=== PATIENT | male | born 1960 | race Caucasian/White ===

== ENCOUNTER 2019-10-04 11:13 | Inpatient (IN) | payer MEDICARE, SELFPAY ==
[2019-10-04] VITALS (18 sets, daily range): BP systolic 141–196; BP diastolic 67–92; PULSE 75–120; RESP 12–29; TEMP 36.1–36.6; O2SAT 95–100; BMI 22.8
--- NOTE | 2019-10-04 11:30 | DI.RAD.S_ITS ---
PROCEDURE: XR CHEST 1V INDICATIONS: sepsis TECHNIQUE: One view of the chest was acquired. COMPARISON: None. FINDINGS: Surgical changes and devices: None. Lungs and pleura: Lungs are clear, yet hyperexpanded. No pleural effusions or pneumothorax. Mediastinum: Mediastinal contours appear normal. Heart size is normal. Bones and chest wall: Age-appropriate bony degenerative changes are seen. No suspicious bony lesions. Overlying soft tissues appear unremarkable. IMPRESSION: No focal infiltrates are seen on this portable chest radiograph. The lungs are hyperexpanded. Dictated by: Lei Ellis M.D. on 10/04/2019 at 11:02 Approved by: Lei Ellis M.D. on 10/04/2019 at 11:03
--- NOTE | 2019-10-04 11:34 | ED_ITS ---
HPI - Extremity Injury (Lower) <CLAUDIA Leger - Last Filed: 10/04/19 20:39> General Chief Complaint: Extremity Problem,Nontraumatic Stated Complaint: 'bad problems with my feet' Time Seen by Provider: 10/04/19 11:14 History of Present Illness HPI Narrative: 59yo disheveled appearing male with poor hygiene presents to the emergency department for bilateral foot pain, swelling, and wounds. Patient states approximately 5 years ago he had similar swelling and pain, he was seen by a vascular specialist who recommended surgery. He declines surgery as they stated he was unable is a splint but recommended using a vein from his arm. He has not seen a doctor since this. However, over the past week he noticed increasing pain and swelling. Patient states he noticed maggots in the wound of his R fifth toe over the past few days, he tried to clean amount. Patient states the pain in his feet is worse when his feet are elevated and when he is walking. He denies any history of diabetes or any chronic medical conditions. Patient states he lives in [place], he denies long walks, recent cold exposure, or consistently wet feet. Patient denies having a primary care provider. Patient states he smokes about a pack of cigarettes a day and occasional marijuana, denies other drugs. Related Data Home Medications Medication Instructions Recorded Confirmed ibuprofen [Advil] 600 mg PO QD-BID PRN 10/04/19 10/04/19 naproxen sodium [Aleve] 220 mg PO Q12H 10/04/19 10/04/19 Allergies Allergy/AdvReac Type Severity Reaction Status Date / Time No Known Drug Allergies Allergy Verified 10/04/19 12:16 Review of Systems <CLAUDIA Leger - Last Filed: 10/04/19 20:39> Review of Systems Narrative: REVIEW OF SYSTEMS: GENERAL: Denies fever or chills. HENT: No head trauma. EYES: No double vision or vision loss. CARDIOVASCULAR: No chest pain or syncope. RESPIRATORY: No shortness of breath or cough. GASTROINTESTINAL: No nausea, vomiting, diarrhea, or constipation. GENITOURINARY: No flank pain. MUSCULOSKELETAL: Complains of bilateral foot pain, see HPI. INTEGUMENTARY: No rash, lesions, or pruritus. NEURO: No numbness, tingling. PSYCH: No behavior or mood changes. Patient History <CLAUDIA Leger - Last Filed: 10/04/19 20:39> Medical History Hyperlipidemia (Acute) Peripheral vascular disease (Acute) Smoker (Acute) Tobacco dependence (Acute) Surgical History History of appendectomy (Acute) History of carpal tunnel surgery of right wrist (Acute) Family History Mother Alcoholism Father Alcoholism Social History household members: none Smoking Status: Current every day smoker Smoking Status: Current every day smoker Exam <CLAUDIA Leger - Last Filed: 10/04/19 20:39> Initial Vital Signs Initial Vital Signs: Vital Signs Temperature 97.9 F 10/04/19 11:38 Pulse Rate 120 H 10/04/19 11:38 Respiratory Rate 12 10/04/19 11:38 Blood Pressure 141/87 H 10/04/19 11:38 Pulse Oximetry 97 10/04/19 11:38 PHYSICAL EXAMINATION: GENERAL: Disheveled, poor hygiene. Answers questions promptly and appropriately. Vital signs noted. HENT: Normocephalic, atraumatic. EYES: Symmetrical, sclera white, no periorbital swelling. CARDIOVASCULAR: S1 and S2 sounds normal. Tachycardia, regular rhythm. RESPIRATORY: Normal respiratory rate, trachea midline, airway patent. No stridor, nasal flaring or accessory muscle use. Lungs are clear in all [place]. Occasional cough noted. MUSCULOSKELETAL: Black gangrenous tissue noted to the distal aspect of his right 5th toe, skin sloughing noted-clear serosanguineous, no maggots observed. Erythema, swelling, tenderness noted to left 3-5th toes extending up to the metatarsals, small amount of purulent drainage noted in between the toes, small amount of black sloughing noted, tip of 4th toe with an ulceration noted. No maggots. No fluctuation. Normal gait and coordination. Equal tone and mass bilaterally. No spinal tenderness or deformities. Patient able to move feet and toes. EXTREMITIES: CMS intact. 1+ nonpitting pedal edema, pedal pulses 2+ and equal bilaterally. SKIN: Warm, dry, soft, appropriate color for ethnicity. No lesions, rashes, or wounds. NEURO: Alert and Oriented X 3. No sensory deficits. PSYCH: Appropriate affect and mood. <Jayden Long MD - Last Filed: 10/29/19 07:11> Initial Vital Signs Initial Vital Signs: Vital Signs Temperature 97.9 F 10/04/19 11:38 Pulse Rate 120 H 10/04/19 11:38 Respiratory Rate 12 10/04/19 11:38 Blood Pressure 141/87 H 10/04/19 11:38 Pulse Oximetry 97 10/04/19 11:38 Course <CLAUDIA Leger - Last Filed: 10/04/19 20:39> Course Course Narrative: 1143: Dr Long at bedside to examine patient is well. 1200: Septic fluids started 1330: Dr. Long spoke with Dr. Quinones, orthopedic who stated he will consult with the patient this evening. 1350: I spoke with Dr. Chen who accepts for admission to inpatient. Requesting CRP and sed rate. Orders Ordered: Discontinued Medications Acetaminophen (Tylenol) 650 mg PO Q6HR PRN PRN Reason: Fever/Mild Pain (1-3) Hydrocodone Bitart/Acetaminophen ([place] 5/325) 1 tab PO Q4HR PRN PRN Reason: Pain, Moderate (4-6) Last Admin: 10/04/19 17:10 Dose: 1 tab Documented by: DEAN Al Hydrox/Mg Hydrox/Simethicone (Maalox Plus) 30 ml PO Q6HR PRN PRN Reason: Dyspepsia Aspirin (Aspirin Ec) 81 mg PO DAILY [facility] Last Admin: 10/05/19 08:39 Dose: Not Given Documented by: ANA Atorvastatin Calcium (Lipitor) 40 mg PO BEDTIME [facility] Last Admin: 10/04/19 20:20 Dose: 40 mg Documented by: DEAN Calcium Carbonate (Tums) 1,000 mg PO Q4HR PRN PRN Reason: Dyspepsia Docusate Sodium (Colace) 100 mg PO BID [facility] Last Admin: 10/05/19 08:39 Dose: Not Given Documented by: Admin: 10/04/19 20:20 Dose: 100 mg Documented by: DEAN Enoxaparin Sodium (Lovenox) 40 mg SUBCUT DAILY [facility] Last Admin: 10/05/19 08:37 Dose: 40 mg Documented by: ANA Sodium Chloride (Normal Saline 0.9%) 2,041.17 mls @ 680.39 mls/hr 30 ml/kg infuse over 3 hr (2041.17 ml) IV NOW ONE Stop: 10/04/19 14:46 Last Infusion: 10/04/19 14:36 Dose: 0 mls/hr Documented by: Admin: 10/04/19 12:02 Dose: 680.39 mls/hr Documented by: UMM Vancomycin HCl/Dextrose (Vancomycin) 1,500 mg in 300 mls @ 200 mls/hr IV NOW O NE Stop: 10/04/19 13:58 Last Infusion: 10/04/19 15:53 Dose: 0 mls/hr Documented by: Admin: 10/04/19 12:49 Dose: 200 mls/hr Documented by: UMM Sodium Chloride (Normal Saline 0.9%) 1,000 mls @ 100 mls/hr IV CONT [facility] Last Admin: 10/05/19 03:25 Dose: 100 mls/hr Documented by: MARIA L Infusion: 10/05/19 02:47 Dose: 100 mls/hr Documented by: MARIA L Admin: 10/04/19 16:47 Dose: 100 mls/hr Documented by: DEAN Ceftriaxone Sodium/Dextrose (Rocephin) 2 gm in 50 mls @ 100 mls/hr IV Q24H [facility] Last Infusion: 10/04/19 20:13 Dose: 0 mls/hr Documented by: Admin: 10/04/19 18:20 Dose: 100 mls/hr Documented by: DEAN Vancomycin HCl (Vancomycin) 1,000 mg in 200 mls @ 200 mls/hr IV Q12H [facility] Last Infusion: 10/05/19 02:30 Dose: 0 mls/hr Documented by: MARIA L Admin: 10/05/19 01:28 Dose: 200 mls/hr Documented by: MARIA L Ketorolac Tromethamine (Toradol) 30 mg IV NOW ONE Stop: 10/04/19 14:23 Last Admin: 10/04/19 14:36 Dose: 30 mg Documented by: UMM Morphine Sulfate (Morphine) 1 mg IV Q2HR PRN PRN Reason: Pain, Mild (1-3) Morphine Sulfate (Morphine) 2 mg IV Q2HR PRN PRN Reason: Pain, Moderate (4-6) Last Admin: 10/05/19 11:01 Dose: 2 mg Documented by: Admin: 10/05/19 08:43 Dose: 2 mg Documented by: Admin: 10/04/19 20:20 Dose: 2 mg Documented by: DEAN Morphine Sulfate (Morphine) 3 mg IV Q2HR PRN PRN Reason: Pain, Severe (7-10) Last Admin: 10/05/19 05:33 Dose: 3 mg Documented by: MARIA L Admin: 10/05/19 03:24 Dose: 3 mg Documented by: MARIA L Admin: 10/05/19 01:25 Dose: 3 mg Documented by: MARIA L Admin: 10/04/19 22:50 Dose: 3 mg Documented by: DEAN Naloxone HCl (Narcan) 0.2 mg IV Q2MIN PRN PRN Reason: Opiate Reversal Ondansetron HCl (Zofran) 4 mg IV Q8HR PRN PRN Reason: Nausea And Vomiting Oxycodone HCl (Percolone) 5 mg PO Q4HR PRN PRN Reason: Pain, Moderate (4-6) Oxycodone HCl (Percolone) 10 mg PO Q4HR PRN PRN Reason: Pain, Severe (7-10) Last Admin: 10/04/19 18:17 Dose: 10 mg Documented by: DEAN Promethazine HCl (Phenadoz) 12.5 mg UT Q6HR PRN PRN Reason: Nausea And Vomiting Sodium Chloride (Normal Saline 0.9% Flush) 10 ml IV PRN PRN PRN Reason: Flush Sodium Chloride (Normal Saline 0.9% Flush) 10 ml IV BID [facility] Last Admin: 10/05/19 08:37 Dose: 10 ml Documented by: ANA Vancomycin HCl (Vancomycin Per Pharmacy) 1 request ANNA NOW ONE Stop: 10/04/19 18:11 Last Admin: 10/04/19 20:21 Dose: Not Given Documented by: DEAN Vancomycin HCl (Vancomycin Trough) 1 request [facility]30 [facility] Stop: 10/06/19 00:31 Vital Signs Vital signs: Vital Signs - 8 hr 10/04/19 13:00 10/04/19 13:30 10/04/19 14:00 Pulse Rate 97 H 90 95 H Respiratory Rate 29 H 24 23 Pulse Oximetry 98 98 98 <Jayden Long MD - Last Filed: 10/29/19 07:11> Orders Ordered: Discontinued Medications Acetaminophen (Tylenol) 650 mg PO Q6HR PRN PRN Reason: Fever/Mild Pain (1-3) Hydrocodone Bitart/Acetaminophen ([place] 5/325) 1 tab PO Q4HR PRN PRN Reason: Pain, Moderate (4-6) Last Admin: 10/04/19 17:10 Dose: 1 tab Documented by: DEAN Contreras Hydrox/Mg Hydrox/Simethicone (Maalox Plus) 30 ml PO Q6HR PRN PRN Reason: Dyspepsia Aspirin (Aspirin Ec) 81 mg PO DAILY [facility] Last Admin: 10/05/19 08:39 Dose: Not Given Documented by: ANA Atorvastatin Calcium (Lipitor) 40 mg PO BEDTIME [facility] Last Admin: 10/04/19 20:20 Dose: 40 mg Documented by: DEAN Calcium Carbonate (Tums) 1,000 mg PO Q4HR PRN PRN Reason: Dyspepsia Docusate Sodium (Colace) 100 mg PO BID [facility] Last Admin: 10/05/19 08:39 Dose: Not Given Documented by: Admin: 10/04/19 20:20 Dose: 100 mg Documented by: DEAN Enoxaparin Sodium (Lovenox) 40 mg SUBCUT DAILY [facility] Last Admin: 10/05/19 08:37 Dose: 40 mg Documented by: ANA Sodium Chloride (Normal Saline 0.9%) 2,041.17 mls @ 680.39 mls/hr 30 ml/kg infuse over 3 hr (2041.17 ml) IV NOW ONE Stop: 10/04/19 14:46 Last Infusion: 10/04/19 14:36 Dose: 0 mls/hr Documented by: Admin: 10/04/19 12:02 Dose: 680.39 mls/hr Documented by: UMM Vancomycin HCl/Dextrose (Vancomycin) 1,500 mg in 300 mls @ 200 mls/hr IV NOW ONE Stop: 10/04/19 13:58 Last Infusion: 10/04/19 15:53 Dose: 0 mls/hr Documented by: Admin: 10/04/19 12:49 Dose: 200 mls/hr Documented by: UMM Sodium Chloride (Normal Saline 0.9%) 1,000 mls @ 100 mls/hr IV CONT [facility] Last Admin: 10/05/19 03:25 Dose: 100 mls/hr Documented by: MARIA L Infusion: 10/05/19 02:47 Dose: 100 mls/hr Documented by: MARIA L Admin: 10/04/19 16:47 Dose: 100 mls/hr Documented by: DEAN Ceftriaxone Sodium/Dextrose (Rocephin) 2 gm in 50 mls @ 100 mls/hr IV Q24H [facility] Last Infusion: 10/04/19 20:13 Dose: 0 mls/hr Documented by: Admin: 10/04/19 18:20 Dose: 100 mls/hr Documented by: DEAN Vancomycin HCl (Vancomycin) 1,000 mg in 200 mls @ 200 mls/hr IV Q12H [facility] Last Infusion: 10/05/19 02:30 Dose: 0 mls/hr Documented by: MARIA L Admin: 10/05/19 01:28 Dose: 200 mls/hr Documented by: MARIA L Ketorolac Tromethamine (Toradol) 30 mg IV NOW ONE Stop: 10/04/19 14:23 Last Admin: 10/04/19 14:36 Dose: 30 mg Documented by: UMM Morphine Sulfate (Morphine) 1 mg IV Q2HR PRN PRN Reason: Pain, Mild (1-3) Morphine Sulfate (Morphine) 2 mg IV Q2HR PRN PRN Reason: Pain, Moderate (4-6) Last Admin: 10/05/19 11:01 Dose: 2 mg Documented by: Admin: 10/05/19 08:43 Dose: 2 mg Documented by: Admin: 10/04/19 20:20 Dose: 2 mg Documented by: DEAN Morphine Sulfate (Morphine) 3 mg IV Q2HR PRN PRN Reason: Pain, Severe (7-10) Last Admin: 10/05/19 05:33 Dose: 3 mg Documented by: MARIA L Admin: 10/05/19 03:24 Dose: 3 mg Documented by: MARIA L Admin: 10/05/19 01:25 Dose: 3 mg Documented by: MARIA L Admin: 10/04/19 22:50 Dose: 3 mg Documented by: DEAN Naloxone HCl (Narcan) 0.2 mg IV Q2MIN PRN PRN Reason: Opiate Reversal Ondansetron HCl (Zofran) 4 mg IV Q8HR PRN PRN Reason: Nausea And Vomiting Oxycodone HCl (Percolone) 5 mg PO Q4HR PRN PRN Reason: Pain, Moderate (4-6) Oxycodone HCl (Percolone) 10 mg PO Q4HR PRN PRN Reason: Pain, Severe (7-10) Last Admin: 10/04/19 18:17 Dose: 10 mg Documented by: DEAN Promethazine HCl (Phenadoz) 12.5 mg UT Q6HR PRN PRN Reason: Nausea And Vomiting Sodium Chloride (Normal Saline 0.9% Flush) 10 ml IV PRN PRN PRN Reason: Flush Sodium Chloride (Normal Saline 0.9% Flush) 10 ml IV BID [facility] Last Admin: 10/05/19 08:37 Dose: 10 ml Documented by: ANA Vancomycin HCl (Vancomycin Per Pharmacy) 1 request [facility] NOW ONE Stop: 10/04/19 18:11 Last Admin: 10/04/19 20:21 Dose: Not Given Documented by: DEAN Vancomycin HCl (Vancomycin Trough) 1 request [facility]30 [facility] Stop: 10/06/19 00:31 Vital Signs Vital signs: Vital Signs - 8 hr 10/04/19 13:00 10/04/19 13:30 10/04/19 14:00 Pulse Rate 97 H 90 95 H Respiratory Rate 29 H 24 23 Pulse Oximetry 98 98 98 MDM - Extremity Injury (Lower) <CLAUDIA Leger - Last Filed: 10/04/19 20:39> Medical Records Attestation: I reviewed the patient's medical records. Lab Data Attestation: I reviewed the patient's lab results. Result diagrams: 10/05/19 04:55 10/05/19 04:55 Labs: Lab Results 10/04/19 10/04/19 10/04/19 Range/Units 11:32 11:32 11:32 WBC 14.0 H (4.5-11.0) X10^3/uL RBC 4.71 (4.5-5.9) X10^6/uL Hgb 15.4 (13.5-17.5) g/dL Hct 45.1 (41-53) % MCV 95.8 (80-100) fL MCH 32.6 (26-34) PG MCHC 34.0 (30-36) % RDW 13.8 (11.6-14.8) % Plt Count 349 (150-400) X10^3/uL Neut % (Auto) 79.0 H (50-75) % Lymph % (Auto) 13.3 L (25-40) % [place] % (Auto) 6.2 (3-14) % Eos % (Auto) 0.8 L (2-4) % Baso % (Auto) 0.7 (0-2) % Neut # (Auto) 98827 H (8053-8813) /uL Lymph # (Auto) 1900 (8219-3578) /uL [place] # (Auto) 900 (0-900) /uL Eos # (Auto) 100 (0-450) /uL Baso # (Auto) 100 (0-100) /uL ESR (0-15) MM/HR Sodium 132 L (137-145) mmol/L Potassium 3.9 (3.4-5.1) mmol/L Chloride 99 (98-107) mmol/L Carbon Dioxide 24 (22-32) mmol/L BUN 16 (9-20) mg/dL Creatinine 0.66 (0.66-1.25) mg/dL Estimated GFR > 60.0 (>60) mL/min BUN/Creatinine Ratio 24.2 H (6-22) Glucose 129 H (80-110) mg/dL Hemoglobin A1c (4.0-6.0) % Lactate (0.7-2.1) mmol/L Calcium 9.1 (8.4-10.2) mg/dL Total Bilirubin 1.1 (0.2-1.3) mg/dL AST 25 (17-59) IU/L ALT 11 (<50) IU/L Alkaline Phosphatase 75 (38-126) U/L C-Reactive Protein (<1.0) mg/dL Total Protein 7.5 (6.3-8.2) g/dL Albumin 4.3 (3.5-5.0) g/dL Globulin 3.2 (1.7-4.1) g/dL Albumin/Globulin Ratio 1.3 (1.0-2.8) Triglycerides (35-150) mg/dL Cholesterol (140-199) mg/dL LDL Cholesterol, Calc (<100) mg/dL HDL Cholesterol (40-60) mg/dL Procalcitonin < 0.05 (<0.5) ng/mL COVID-19 PCR (Negative) 10/04/19 10/04/19 10/04/19 Range/Units 11:32 11:32 11:32 WBC (4.5-11.0) X10^3/uL RBC (4.5-5.9) X10^6/uL Hgb (13.5-17.5) g/dL Hct (41-53) % MCV (80-100) fL MCH (26-34) PG MCHC (30-36) % RDW (11.6-14.8) % Plt Count (150-400) X10^3/uL Neut % (Auto) (50-75) % Lymph % (Auto) (25-40) % [place] % (Auto) (3-14) % Eos % (Auto) (2-4) % Baso % (Auto) (0-2) % Neut # (Auto) (6581-5620) /uL Lymph # (Auto) (5973-2569) /uL [place] # (Auto) (0-900) /uL Eos # (Auto) (0-450) /uL Baso # (Auto) (0-100) /uL ESR 19 H (0-15) MM/HR Sodium (137-145) mmol/L Potassium (3.4-5.1) mmol/L Chloride (98-107) mmol/L Carbon Dioxide (22-32) mmol/L BUN (9-20) mg/dL Creatinine (0.66-1.25) mg/dL Estimated GFR (>60) mL/min BUN/Creatinine Ratio (6-22) Glucose (80-110) mg/dL Hemoglobin A1c (4.0-6.0) % Lactate 1.5 (0.7-2.1) mmol/L Calcium (8.4-10.2) mg/dL Total Bilirubin (0.2-1.3) mg/dL AST (17-59) IU/L ALT (<50) IU/L Alkaline Phosphatase (38-126) U/L C-Reactive Protein 1.3 H (<1.0) mg/dL Total Protein (6.3-8.2) g/dL Albumin (3.5-5.0) g/dL Globulin (1.7-4.1) g/dL Albumin/Globulin Ratio (1.0-2.8) Triglycerides (35-150) mg/dL Cholesterol (140-199) mg/dL LDL Cholesterol, Calc (<100) mg/dL HDL Cholesterol (40-60) mg/dL Procalcitonin (<0.5) ng/mL COVID-19 PCR (Negative) 10/04/19 10/04/19 10/04/19 Range/Units 11:32 11:32 11:51 WBC (4.5-11.0) X10^3/uL RBC (4.5-5.9) X10^6/uL Hgb (13.5-17.5) g/dL Hct (41-53) % MCV (80-100) fL MCH (26-34) PG MCHC (30-36) % RDW (11.6-14.8) % Plt Count (150-400) X10^3/uL Neut % (Auto) (50-75) % Lymph % (Auto) (25-40) % [place] % (Auto) (3-14) % Eos % (Auto) (2-4) % Baso % (Auto) (0-2) % Neut # (Auto) (1072-1105) /uL Lymph # (Auto) (8961-7771) /uL [place] # (Auto) (0-900) /uL Eos # (Auto) (0-450) /uL Baso # (Auto) (0-100) /uL ESR (0-15) MM/HR Sodium (137-145) mmol/L Potassium (3.4-5.1) mmol/L Chloride (98-107) mmol/L Carbon Dioxide (22-32) mmol/L BUN (9-20) mg/dL Creatinine (0.66-1.25) mg/dL Estimated GFR (>60) mL/min BUN/Creatinine Ratio (6-22) Glucose (80-110) mg/dL Hemoglobin A1c 5.6 (4.0-6.0) % Lactate (0.7-2.1) mmol/L Calcium (8.4-10.2) mg/dL Total Bilirubin (0.2-1.3) mg/dL AST (17-59) IU/L ALT (<50) IU/L Alkaline Phosphatase (38-126) U/L C-Reactive Protein (<1.0) mg/dL Total Protein (6.3-8.2) g/dL Albumin (3.5-5.0) g/dL Globulin (1.7-4.1) g/dL Albumin/Globulin Ratio (1.0-2.8) Triglycerides 168 H (35-150) mg/dL Cholesterol 207 H (140-199) mg/dL LDL Cholesterol, Calc 132 H (<100) mg/dL HDL Cholesterol 41 (40-60) mg/dL Procalcitonin (<0.5) ng/mL COVID-19 PCR Negative (Negative) Urine Dip Bedside Urine Glucose Negative Bedside Urine Bilirubin - Negative Bedside Urine Ketone +/- 5 Urine Specific Seth 1.010 Bedside Urine Occult Blood - Negative Bedside Urine pH 6.0 Bedside Urine Protein + 30 Bedside Urine Urobilinogen - Negative Bedside Urine Nitrite - Negative Bedside Urine Leukocytes - Negative Esterase Imaging Data Chest x-ray: Radiologist's Impression: [address] [address] XRay Report Signed Patient: Topher Bethea LMR#: [id number] : 9Acct:[id number] Age/Sex: 59 / MDate of Service: 10/04/19 Loc: ED Accession Number: [id number] Procedure: XR chest 1V Ordering Provider: Camila Yoo PROCEDURE: XR CHEST 1V INDICATIONS: sepsis TECHNIQUE: One view of the chest was acquired. COMPARISON: None. FINDINGS: Surgical changes and devices: None. Lungs and pleura: Lungs are clear, yet hyperexpanded. No pleural effusions or pneumothorax. Mediastinum: Mediastinal contours appear normal. Heart size is normal. Bones and chest wall: Age-appropriate bony degenerative changes are seen. No suspicious bony lesions. Overlying soft tissues appear unremarkable. IMPRESSION: No focal infiltrates are seen on this portable chest radiograph. The lungs are hyperexpanded. Dictated by: Lei Ellis M.D. on 10/04/2019 at 11:02 Approved by: Lei Ellis M.D. on 10/04/2019 at 11:03 Toe Xray: Radiologist's Impression: [address] [address] XRay Report Signed Patient: Topher Bethea LMR#: [id number] : 9At:[id number] Age/Sex: 59 / MDate of Service: 10/04/19 Loc: ED Accession Number: [id number] Procedure: XR toe RT min 2V Ordering Provider: Camila Yoo PROCEDURE: XR TOE RT MIN 2V INDICATIONS: 5th toe gangrenous, r/o osteomyelitis TECHNIQUE: 3 views of the right foot and right 5th toe(s) acquired. COMPARISON: None. FINDINGS: Bones: Erosive changes are noted involving lateral aspect of 5th distal phalangeal shaft and tuft. No fracture or dislocation. No suspicious bony lesions. Soft tissues: There is suggestion of ulceration involving tip of the 5th toe. No definite subcutaneous emphysema. IMPRESSION: Ulceration involving tip of 5th toe with underlying osteomyelitis involving 5th distal phalangeal tuft and mid to distal shaft. Dictated by: Phong Butler M.D. on 10/04/2019 at 12:40 Approved by: Phong Butler M.D. on 10/04/2019 at 12:45 Foot Xray: Radiologist's Impression: [address] [address] XRay Report Signed Patient: Topher Bethea LMR#: [id number] : 9At:[id number] Age/Sex: 59 / MDate of Service: 10/04/19 Loc: ED Accession Number: [id number] Procedure: XR foot LT min 3V Ordering Provider: Camila Yoo PROCEDURE: XR FOOT LT MIN 3V INDICATIONS: L 3-5th toe and metatarsal swelling and redness, r/o osteo TECHNIQUE: 3 views of the foot were acquired. COMPARISON: None. FINDINGS: Bones: Forefoot alignment is anatomic. No acute fracture or dislocation. Radiolucency is noted involving medial aspect of 5th proximal phalangeal head, 5th middle and distal phalanges. Subtle erosion/lucency involving adjacent lateral cortex of 4th proximal phalangeal head is also seen. No suspicious bony lesions. Soft tissues: Possible ulceration involving 4th interspace of left forefoot is seen. No tibiotalar joint effusion. Achilles tendon appears normal. IMPRESSION: Possible ulceration involving 4th interspace of forefoot with subtle erosive changes in 4th and 5th toes as described above concerning for osteomyelitis. No fracture or dislocation. Dictated by: Phong Butler M.D. on 10/04/2019 at 12:45 Approved by: Phong Butler M.D. on 10/04/2019 at 12:48 ECG Data Interpretation: 1133: Normal sinus rhythm, rate 98, UT interval 142, QTC 446. No ST elevation or ST depression. No T-wave inversion. EKG also viewed by Dr. Long per protocol. MDM Narrative Medical decision making narrative: 59yo male presenting to the emergency department for bilateral foot wounds. Patient states he has not seen a doctor in the past 5 years, problems have been ongoing but over the past week they have worsen. Patient has obvious ulcerations with necrotic tissue noted to right toes and left his. X-rays reveal a definite osteomyelitis to right toe with concerns of osteomyelitis to left toe. Patient initially presented with an elevated heart rate, sepsis fluids were started. White count slightly elevated, and lactate below two. Vancomycin was started normal results were pending. Orthopedic consult, will see patient this evening. Patient remained hemodynamically stable with improving vital signs. He did present with significantly elevated hypertension, patient was not symptomatic in the emergency department. Denied taking meds for this. Patient was admitted to Dr. Chen for further workup and evaluation. Patient consented to admission. <Jayden Long MD - Last Filed: 10/29/19 07:11> Lab Data Labs: Lab Results 10/04/19 10/04/19 10/04/19 Range/Units 11:32 11:32 11:32 WBC 14.0 H (4.5-11.0) X10^3/uL RBC 4.71 (4.5-5.9) X10^6/uL Hgb 15.4 (13.5-17.5) g/dL Hct 45.1 (41-53) % MCV 95.8 (80-100) fL MCH 32.6 (26-34) PG MCHC 34.0 (30-36) % RDW 13.8 (11.6-14.8) % Plt Count 349 (150-400) X10^3/uL Neut % (Auto) 79.0 H (50-75) % Lymph % (Auto) 13.3 L (25-40) % [place] % (Auto) 6.2 (3-14) % Eos % (Auto) 0.8 L (2-4) % Baso % (Auto) 0.7 (0-2) % Neut # (Auto) 80519 H (9957-5756) /uL Lymph # (Auto) 1900 (1784-6653) /uL [place] # (Auto) 900 (0-900) /uL Eos # (Auto) 100 (0-450) /uL Baso # (Auto) 100 (0-100) /uL ESR (0-15) MM/HR Sodium 132 L (137-145) mmol/L Potassium 3.9 (3.4-5.1) mmol/L Chloride 99 (98-107) mmol/L Carbon Dioxide 24 (22-32) mmol/L BUN 16 (9-20) mg/dL Creatinine 0.66 (0.66-1.25) mg/dL Estimated GFR > 60.0 (>60) mL/min BUN/Creatinine Ratio 24.2 H (6-22) Glucose 129 H (80-110) mg/dL Hemoglobin A1c (4.0-6.0) % Lactate (0.7-2.1) mmol/L Calcium 9.1 (8.4-10.2) mg/dL Total Bilirubin 1.1 (0.2-1.3) mg/dL AST 25 (17-59) IU/L ALT 11 (<50) IU/L Alkaline Phosphatase 75 (38-126) U/L C-Reactive Protein (<1.0) mg/dL Total Protein 7.5 (6.3-8.2) g/dL Albumin 4.3 (3.5-5.0) g/dL Globulin 3.2 (1.7-4.1) g/dL Albumin/Globulin Ratio 1.3 (1.0-2.8) Triglycerides (35-150) mg/dL Cholesterol (140-199) mg/dL LDL Cholesterol, Calc (<100) mg/dL HDL Cholesterol (40-60) mg/dL Procalcitonin < 0.05 (<0.5) ng/mL COVID-19 PCR (Negative) 10/04/19 10/04/19 10/04/19 Range/Units 11:32 11:32 11:32 WBC (4.5-11.0) X10^3/uL RBC (4.5-5.9) X10^6/uL Hgb (13.5-17.5) g/dL Hct (41-53) % MCV (80-100) fL MCH (26-34) PG MCHC (30-36) % RDW (11.6-14.8) % Plt Count (150-400) X10^3/uL Neut % (Auto) (50-75) % Lymph % (Auto) (25-40) % [place] % (Auto) (3-14) % Eos % (Auto) (2-4) % Baso % (Auto) (0-2) % Neut # (Auto) (0768-5370) /uL Lymph # (Auto) (2525-9650) /uL [place] # (Auto) (0-900) /uL Eos # (Auto) (0-450) /uL Baso # (Auto) (0-100) /uL ESR 19 H (0-15) MM/HR Sodium (137-145) mmol/L Potassium (3.4-5.1) mmol/L Chloride (98-107) mmol/L Carbon Dioxide (22-32) mmol/L BUN (9-20) mg/dL Creatinine (0.66-1.25) mg/dL Estimated GFR (>60) mL/min BUN/Creatinine Ratio (6-22) Glucose (80-110) mg/dL Hemoglobin A1c (4.0-6.0) % Lactate 1.5 (0.7-2.1) mmol/L Calcium (8.4-10.2) mg/dL Total Bilirubin (0.2-1.3) mg/dL AST (17-59) IU/L ALT (<50) IU/L Alkaline Phosphatase (38-126) U/L C-Reactive Protein 1.3 H (<1.0) mg/dL Total Protein (6.3-8.2) g/dL Albumin (3.5-5.0) g/dL Globulin (1.7-4.1) g/dL Albumin/Globulin Ratio (1.0-2.8) Triglycerides (35-150) mg/dL Cholesterol (140-199) mg/dL LDL Cholesterol, Calc (<100) mg/dL HDL Cholesterol (40-60) mg/dL Procalcitonin (<0.5) ng/mL COVID-19 PCR (Negative) 10/04/19 10/04/19 10/04/19 Range/Units 11:32 11:32 11:51 WBC (4.5-11.0) X10^3/uL RBC (4.5-5.9) X10^6/uL Hgb (13.5-17.5) g/dL Hct (41-53) % MCV (80-100) fL MCH (26-34) PG MCHC (30-36) % RDW (11.6-14.8) % Plt Count (150-400) X10^3/uL Neut % (Auto) (50-75) % Lymph % (Auto) (25-40) % [place] % (Auto) (3-14) % Eos % (Auto) (2-4) % Baso % (Auto) (0-2) % Neut # (Auto) (1074-5644) /uL Lymph # (Auto) (4213-7170) /uL [place] # (Auto) (0-900) /uL Eos # (Auto) (0-450) /uL Baso # (Auto) (0-100) /uL ESR (0-15) MM/HR Sodium (137-145) mmol/L Potassium (3.4-5.1) mmol/L Chloride (98-107) mmol/L Carbon Dioxide (22-32) mmol/L BUN (9-20) mg/dL Creatinine (0.66-1.25) mg/dL Estimated GFR (>60) mL/min BUN/Creatinine Ratio (6-22) Glucose (80-110) mg/dL Hemoglobin A1c 5.6 (4.0-6.0) % Lactate (0.7-2.1) mmol/L Calcium (8.4-10.2) mg/dL Total Bilirubin (0.2-1.3) mg/dL AST (17-59) IU/L ALT (<50) IU/L Alkaline Phosphatase (38-126) U/L C-Reactive Protein (<1.0) mg/dL Total Protein (6.3-8.2) g/dL Albumin (3.5-5.0) g/dL Globulin (1.7-4.1) g/dL Albumin/Globulin Ratio (1.0-2.8) Triglycerides 168 H (35-150) mg/dL Cholesterol 207 H (140-199) mg/dL LDL Cholesterol, Calc 132 H (<100) mg/dL HDL Cholesterol 41 (40-60) mg/dL Procalcitonin (<0.5) ng/mL COVID-19 PCR Negative (Negative) Urine Dip Bedside Urine Glucose Negative Bedside Urine Bilirubin - Negative Bedside Urine Ketone +/- 5 Urine Specific Seth 1.010 Bedside Urine Occult Blood - Negative Bedside Urine pH 6.0 Bedside Urine Protein + 30 Bedside Urine Urobilinogen - Negative Bedside Urine Nitrite - Negative Bedside Urine Leukocytes - Negative Esterase Discharge Plan Departure Patient Disposition: Admitted As Inpatient Clinical Impression: Osteomyelitis Qualifiers: Osteomyelitis type: unspecified type Osteomyelitis location: multiple sites Qualified Code(s): M86.9 - Osteomyelitis, unspecified Discharge Date/Time: 10/04/19 15:57 Admit Date/Time: 10/04/19 14:11 Admit Provider: Shauna Chen
[2019-10-04 11:41] LABS: Add Manual Diff / Slide Review NO; Basophils Absolute Auto 100 /uL (0-100); Basophils Percent Auto 0.7 % (0-2); Eosinophils Absolute Auto 100 /uL (0-450); Eosinophils Percent Auto 0.8 % (2-4); Hematocrit 45.1 % (41-53); Hemoglobin 15.4 g/dL (13.5-17.5); Lymphocytes Absolute Auto 1900 /uL (1100-4500); Lymphocytes Percent Auto 13.3 % (25-40); Mean Corpuscular Hemoglobin 32.6 PG (26-34); Mean Corpuscular Volume 95.8 fL (80-100); Monocytes Absolute Auto 900 /uL (0-900); Monocytes Percent Auto 6.2 % (3-14); Neutrophils Absolute Auto 11100 /uL (1500-7000); Platelet Count 349 X10^3/uL (150-400); Red Blood Cell Count 4.71 X10^6/uL (4.5-5.9); Red Cell Distribution Width 13.8 % (11.6-14.8)
[2019-10-04 11:54] LABS: Alanine Aminotransferase 11 IU/L (<50); Albumin 4.3 g/dL (3.5-5.0); Albumin Globulin Ratio 1.3 (1.0-2.8); Alkaline Phosphatase 75 U/L (38-126); Aspartate Aminotransferase 25 IU/L (17-59); BUN Creatinine Ratio 24.2 (6-22); Bilirubin Total 1.1 mg/dL (0.2-1.3); Blood Urea Nitrogen 16 mg/dL (9-20); Calcium 9.1 mg/dL (8.4-10.2); Carbon Dioxide 24 mmol/L (22-32); Chloride 99 mmol/L (98-107); Estimated Glomerular Filt Rate > 60.0 mL/min (>60); Globulin 3.2 g/dL (1.7-4.1); Glucose 129 mg/dL (80-110); HEMOLYSIS 30 (0-50); Potassium 3.9 mmol/L (3.4-5.1); Sodium 132 mmol/L (137-145); Total Protein 7.5 g/dL (6.3-8.2)
[2019-10-04 11:55] LABS: Lactate (Lactic Acid) 1.5 mmol/L (0.7-2.1)
[2019-10-04] MEDS: SODIUM CHLORIDE 0.9% 2,041.17 ML 680.39 ML IV (12:02)
[2019-10-04 12:15] LABS: Procalcitonin < 0.05 ng/mL (<0.5)
[2019-10-04] MEDS: VANCOMYCIN 1,500 MG/300 ML FROZ.PIGGY 200 MG IV (12:49)
[2019-10-04 12:57] LABS: COVID19 -Nasal RAPID Negative (Negative)
[2019-10-04] MEDS: KETOROLAC 30 MG/ML VIAL IV (14:36)
[2019-10-04 15:16] LABS: C-Reactive Protein Quant 1.3 mg/dL (<1.0)
[2019-10-04 15:39] LABS: Erythrocyte Sedimentation Rate 19 MM/HR (0-15)
--- NOTE | 2019-10-04 16:05 | P.HP_ITS ---
History of Present Illness History of Present Illness Date Patient Seen: 10/04/19 Chief complaint: 'bad problems with my feet' Narrative: [place] is a 59-year-old male with a past medical history significant for peripheral vascular disease, current smoker with nicotine dependence, and hyperlipidemia who presented to the ED with increasingly painful and gangrenous feet. The patient reports progressive bilateral foot pain for 10 days. He has a history of peripheral vascular disease and was previously seen by a vascular surgeon at [facility] in [place] about 5 years ago and was told that he needed a bypass graft at that point but he never had the surgery as he is alone and rep orts he cant go without walking. He has been having progressive lower extremity claudication and is now only able to stay on his feet for a few minutes at a time. He denies homelessness and states he lives in a trailer in [place]. His claudication has become so severe he is unable to take his trash out at home and believes this is why he has maggots in his wounds due to flies from the trash. Sherry vázquez is rubbing his legs during the interview and reports this is the only thing that gives him relief. He reports pain is legs when he stands, walks or elevates legs which starts in the feet and works its way up his legs and when he sits down it gradually gets better. He has been having increasing and severe pain into both feet much worse on the left side and the toes on both feet have been looking very bad, turning black on the right and draining pus and red hot on the left for 10 days. He has had some nausea lately but no vomiting. He has no other complaints and denies headache, shortness of breath, chest pain, abdominal pain, fever, chills, dysuria, diarrhea or constipation. Patient History Medical History Hyperlipidemia (Acute) Peripheral vascular disease (Acute) Smoker (Acute) Tobacco dependence (Acute) Surgical History History of appendectomy (Acute) History of carpal tunnel surgery of right wrist (Acute) Family & Social History Family History Mother Alcoholism Father Alcoholism Safety & Behavioral: Feels Safe in Current Yes Environment Been Physically Hurt or No Threatened By a Person Tobacco & Substance use: Smoking Status Current every day smoker, 1.5 ppd x 40 years alcohol intake frequency a few times a week Substance Use Type marijuana Meds Home Medications and Allergies Home Medications Medication Instructions Recorded Confirmed Type ibuprofen [Advil] 600 mg PO QD-BID PRN 10/04/19 10/04/19 History naproxen sodium [Aleve] 220 mg PO Q12H 10/04/19 10/04/19 History Allergies Allergy/AdvReac Type Severity Reaction Status Date / Time No Known Drug Allergies Allergy Verified 10/04/19 12:16 Review of Systems Review of Systems Narrative: A 10 system comprehensive review of systems was conducted with the patient and found to be negative except as above in the History of Present Illness. Exam Vital Signs (past 8 hours): - 10/04/19 11:38 10/04/19 12:20 10/04/19 12:30 Temperature 97.9 F Pulse Rate 120 H 104 H 95 H Respiratory Rate 12 27 H 24 Blood Pressure 141/87 H 189/92 H 196/88 H Pulse Oximetry 97 98 98 10/04/19 13:00 10/04/19 13:30 10/04/19 14:00 Temperature Pulse Rate 97 H 90 95 H Respiratory Rate 29 H 24 23 Blood Pressure Pulse Oximetry 98 98 98 10/04/19 14:30 10/04/19 14:40 10/04/19 14:50 Temperature Pulse Rate 83 Respiratory Rate 24 18 Blood Pressure 188/88 H 182/67 H Pulse Oximetry 98 99 97 10/04/19 15:00 10/04/19 15:10 10/04/19 15:20 Temperature Pulse Rate 75 76 91 H Respiratory Rate 18 18 21 Blood Pressure 178/82 H 180/79 H 181/84 H Pulse Oximetry 98 98 99 10/04/19 15:30 10/04/19 15:40 10/04/19 15:50 Temperature Pulse Rate 90 93 H 99 H Respiratory Rate 20 23 21 Blood Pressure 187/92 H 189/91 H 179/87 H Pulse Oximetry 100 99 97 Oxygen Delivery Method Room Air Narrative Exam Narrative: General: Older disheveled appearing male appears mildly uncomfortbale but in no acute distress, appears older than stated age, poor hygeine, mild anxiety but appropriately interactive. HEENT: Normocephalic, atraumatic. External ears without defect. Pupils equal, round, and reactive to light. Anicteric sclerae, moist conjunctivae, and no lid lag. Oropharynx free of erythema and cobble stoning with moist mucosa. Neck: Supple with full range of motion. No lymphadenopathy or thyromegaly. Cardiovascular: Regular rate and rhythm without murmurs, rubs, or gallops appreciated. Pulmonary: Clear to auscultation bilaterally without crackles, wheezes, or rhonchi. Normal respiratory effort with no use of accessory muscles. Abdomen:Soft, bowel sounds present, nontender, nondistended. No hepatosplen omegaly or masses appreciated. Extremities: No clubbing or cyanosis. Dry gangrene of right 4th toe and wet gangrene of 3rd-5th toes of left foot with maggots in wounds and foul smell and drainage with surrounding foot erythematous and edematous to ankle and small 2 cm flutuance on lateral mid aspect of left foot. Pulses weak bilaterally at popliteal and dorsalis pedis. Neurological: Cranial nerves grossly intact. Psychiatric: Normal mood and affect. Alert and oriented to person, place, and ti me. Objective Labs Result Diagrams: 10/05/19 04:55 10/05/19 04:55 Labs: Laboratory Results - last 24 hr 10/04/19 10/04/19 10/04/19 11:32 11:32 11:32 WBC 14.0 H RBC 4.71 Hgb 15.4 Hct 45.1 MCV 95.8 MCH 32.6 MCHC 34.0 RDW 13.8 Plt Count 349 Neut % (Auto) 79.0 H Lymph % (Auto) 13.3 L [place] % (Auto) 6.2 Eos % (Auto) 0.8 L Baso % (Auto) 0.7 Neut # (Auto) 19037 H Lymph # (Auto) 1900 [place] # (Auto) 900 Eos # (Auto) 100 Baso # (Auto) 100 ESR Sodium 132 L Potassium 3.9 Chloride 99 Carbon Dioxide 24 BUN 16 Creatinine 0.66 Estimated GFR > 60.0 BUN/Creatinine Ratio 24.2 H Glucose 129 H Lactate Calcium 9.1 Total Bilirubin 1.1 AST 25 ALT 11 Alkaline Phosphatase 75 C-Reactive Protein Total Protein 7.5 Albumin 4.3 Globulin 3.2 Albumin/Globulin Ratio 1.3 Procalcitonin < 0.05 COVID-19 PCR 10/04/19 10/04/19 10/04/19 11:32 11:32 11:32 WBC RBC Hgb Hct MCV MCH MCHC RDW Plt Count Neut % (Auto) Lymph % (Auto) [place] % (Auto) Eos % (Auto) Baso % (Auto) Neut # (Auto) Lymph # (Auto) [place] # (Auto) Eos # (Auto) Baso # (Auto) ESR 19 H Sodium Potassium Chloride Carbon Dioxide BUN Creatinine Estimated GFR BUN/Creatinine Ratio Glucose Lactate 1.5 Calcium Total Bilirubin AST ALT Alkaline Phosphatase C-Reactive Protein 1.3 H Total Protein Albumin Globulin Albumin/Globulin Ratio Procalcitonin COVID-19 PCR 10/04/19 11:51 WBC RBC Hgb Hct MCV MCH MCHC RDW Plt Count Neut % (Auto) Lymph % (Auto) [place] % (Auto) Eos % (Auto) Baso % (Auto) Neut # (Auto) Lymph # (Auto) [place] # (Auto) Eos # (Auto) Baso # (Auto) ESR Sodium Potassium Chloride Carbon Dioxide BUN Creatinine Estimated GFR BUN/Creatinine Ratio Glucose Lactate Calcium Total Bilirubin AST ALT Alkaline Phosphatase C-Reactive Protein Total Protein Albumin Globulin Albumin/Globulin Ratio Procalcitonin COVID-19 PCR Negative Assessment & Plan Assessment & Plan narrative: [place] is a 59-year-old male with a past medical history significant for peripheral vascular disease, current smoker with nicotine dependence, hyperlipidemia who presented to the ED with increasingly painful and gangrenous feet. 1. Acute osteomyelitis of bilateral feet with both dry and wet gangrene, secondary to peripheral vascular disease, present on admission. Active. -Patient presented with progressive worsening bilateral foot pain L>R with claudication and dry gangrene of right 4th toe and wet gangrene of 3rd-5th toes of left foot with maggots in wounds and foul smell and drainage. Patient with history of PVD with recommended fem-pop bypass 5 years ago at [facility] vascular surgery. -Right toe x-ray demonstrated ulceration involving tip of 5th toe with underlying osteomyelitis involving 5th distal phalangeal tuft and mid to distal shaft. -Left foot x-ray demonstrated possible ulceration involving 4th interspace of forefoot with subtle erosive changes in 4th and 5th toes as described above concerning for osteomyelitis. No fracture or dislocation. Initial WBC 14.0 and procalcitonin negative <0.05. Continue to monitor WBC and procalcitonin daily. -Blood and wound cultures pending. -Ordered hemoglobin A1C pending. -Continue oxycodone 5-10 mg every 4 hours for pain. -Started atorvastatin 40 mg daily at bedtime and continue home aspirin 81 mg daily. May want to consider plavix and would discuss with vascular surgery. -Received vancomycin in ED. Continue vancomycin with dosing per pharmacist and ceftriaxone 2 g IV daily. -Ordered CT abdominal aortic run off to assess severity of peripheral vascular disease, pending. -Consulted orthopedic surgery, Dr. Quinones, to evaluate osteomyelitis and probable amputation of right 4th toe and possibly left toes versus foot or higher. Patient has limited vascular supply and would not heal and may require extensive amputation and undoubtedly should be considered for revascularization at same time and consider transfer pending vascular study. 2. Hyperlipidemia, chronic, present on admission. Stable. -Ordered lipid panel pending. -Started atorvastatin 40 mg daily at bedtime and continue home aspirin 81 mg daily. 3. Nicotine dependence, chronic, present on admission. Stable. -Patient smokes 1.5 ppd x 40 years making a 60 pack year history. Code Status: DNR/DNI VTE prophylaxis: Enoxaparin Patient is admitted under inpatient status with expected length of stay greater than 2 midnights due to severity of presenting symptoms, risk of adverse event, and complexity of treatment plan.
[2019-10-04] MEDS: SODIUM CHLORIDE 0.9% 1,000 ML 100 ML IV (16:47)
[2019-10-04] MEDS: HYDROCODONE/ACET 5/325 TABLET 1 TAB PO (17:10)
[2019-10-04] MEDS: OXYCODONE IR 10 MG TABLET PO (18:17)
[2019-10-04] MEDS: CEFTRIAXONE 2 GM/50 ML FROZ.PIGGY IV (18:20)
[2019-10-04 18:43] LABS: Cholesterol 207 mg/dL (140-199); HDL Cholesterol 41 mg/dL (40-60); LDL Cholesterol Calculated 132 mg/dL (<100); Triglycerides 168 mg/dL (35-150)
[2019-10-04 18:46] LABS: Hemoglobin A1C% w Est Avg Glu 5.6 % (4.0-6.0)
--- NOTE | 2019-10-04 18:51 | DI.CT.S_ITS ---
PROCEDURE: CT ANGIO ABD AORTA RUNOFF INDICATIONS: History of PVD, poor circulation TECHNIQUE: After the administration of intravenous contrast, 2.5 mm sections acquired from T12 to the feet, with optional delayed image acquisition from the knees to the feet. 3-dimensional maximum intensity projection (MIP) coronal and sagittal reformats, and/or 3-dimensional volume rendering reformatting was then performed. For radiation dose reduction, the following was used: automated exposure control. COMPARISON: None. FINDINGS: Image quality: Excellent. Extravascular tissues: Lower thorax and upper abdomen not included. Liver, spleen, pancreas, adrenals, and most of the kidneys are not included. Non opacified bowel loops demonstrate normal wall thickness and enhancement. No free fluid or air. No retroperitoneal or mesenteric adenopathy. No ventral hernias. Bladder wall thickness is normal. No inguinal hernias or adenopathy. No suspicious bony lesions. No vertebral body compression fractures. Question ileus pattern. Abdominal aorta: Only the most distal aspect of the abdominal aorta is included. There is diffuse atherosclerotic calcification and mild luminal narrowing from plaque. Right lower extremity: Severe proximal common iliac artery stenosis at the aortic bifurcation. Moderate to severe diffuse common iliac disease. External iliac is diffusely diminutive with severe stenosis. Moderate common femoral stenotic disease. SFA is occluded at its origin. Profundus is hypertrophied. Reconstitution above the knee popliteal artery. Three-vessel runoff. Left lower extremity: High-grade stenosis of the common iliac artery with possible short segment occlusion. Severe diffuse external iliac artery stenotic disease. Mild common femoral artery disease. SFA occluded at its origin. Profundus hypertrophy. Reconstitution above the knee popliteal, which is diffusely diminutive. Three-vessel runoff. IMPRESSION: 1. Imaging only includes a short distance above the aortic bifurcation. 2. Right pelvis: Severe proximal common iliac artery stenosis with moderate to severe diffuse common iliac artery disease, and severe external iliac disease. 3. Left pelvis: High-grade stenosis of the common iliac artery with possible short segment occlusion. Severe diffuse external iliac artery stenotic disease. 4. Right lower extremity runoff significant for SFA occlusion, reconstitution of the above the knee popliteal, and 3 vessel runoff. 5. Left lower extremity runoff significant for SFA occlusion, reconstitution of the above the knee popliteal, and three-vessel runoff. Comment: The extensive bilateral iliac stenotic or occlusive disease may be amenable to percutaneous endovascular recanalization. Dictated by: Marky Garcias M.D. on 10/04/2019 at 19:36 Approved by: Marky Garcias M.D. on 10/04/2019 at 19:47
--- NOTE | 2019-10-04 19:41 | P.CONS_ITS ---
History of Present Illness Consult details Date Patient Seen: 10/04/19 Time Patient Seen: 19:42 Chief complaint: 'bad problems with my feet' Reason for consult: Gangrene of both feet Requesting provider: Shauna Chen Narrative: 59-year-old male with gangrenous feet. He reports a history of seeing a vascular surgeon about 5 years ago and being told that he needed a bypass graft at that point but he never had the surgery. He has been having pain is legs when he stands or walks it starts in the feet works its way up his legs. He sits down and gradually gets better. He has been having increasing pain into both feet much worse on the left side. Over the past 5 days the toes on both feet have been looking very bad, turning black on the right and draining pus and red hot on the left. He has been having severe pain with this. He came into the hospital today due to the pain and drainage. He lives in [place]. He reports that he has a brother that had vascular stent that failed. He does smoke cigarettes, but reports he stopped a few days ago. He denies diabetes. He has normal sensation in his feet. Meds Home Medications and Allergies Home Medications Medication Instructions Recorded Confirmed Type ibuprofen [Advil] 600 mg PO QD-BID PRN 10/04/19 10/04/19 History naproxen sodium [Aleve] 220 mg PO Q12H 10/04/19 10/04/19 History Allergies Allergy/AdvReac Type Severity Reaction Status Date / Time No Known Drug Allergies Allergy Verified 10/04/19 12:16 Review of Systems Constitutional Constitutional: Denies chills and Denies fever(s) Cardiovascular Cardiovascular: Denies chest pain Respiratory Respiratory: Denies chest congestion Gastrointestinal Gastrointestinal: Denies abdominal pain Musculoskeletal Musculoskeletal: Denies numbness Neurologic Neurologic: Denies numbness Hematologic/Lymphatic Hematologic/Lymphatic: Denies easy bleeding Allergic/Immunologic Allergic/Immunologic: Denies urticaria Exam Vital Signs (past 8 hours): - 10/04/19 12:20 10/04/19 12:30 10/04/19 13:00 Temperature Pulse Rate 104 H 95 H 97 H Respiratory Rate 27 H 24 29 H Blood Pressure 189/92 H 196/88 H Pulse Oximetry 98 98 98 10/04/19 13:30 10/04/19 14:00 10/04/19 14:30 Temperature Pulse Rate 90 95 H Respiratory Rate 24 23 Blood Pressure Pulse Oximetry 98 98 98 10/04/19 14:40 10/04/19 14:50 10/04/19 15:00 Temperature Pulse Rate 83 75 Respiratory Rate 24 18 18 Blood Pressure 188/88 H 182/67 H 178/82 H Pulse Oximetry 99 97 98 10/04/19 15:10 10/04/19 15:20 10/04/19 15:30 Temperature Pulse Rate 76 91 H 90 Respiratory Rate 18 21 20 Blood Pressure 180/79 H 181/84 H 187/92 H Pulse Oximetry 98 99 100 10/04/19 15:40 10/04/19 15:50 10/04/19 16:00 Temperature 97.4 F L Pulse Rate 93 H 99 H 109 H Respiratory Rate 23 21 18 Blood Pressure 189/91 H 179/87 H 162/82 H Pulse Oximetry 99 97 96 Oxygen Delivery Method Room Air Oxygen Flow Rate 0 Const Orientation: alert and oriented x3 Resp Auscultation: clear to auscultation bilaterally Cardio Rate: regular rate Rhythm: regular rhythm Extrem Other: Right foot dry gangrene on the 5th toe up to the proximal phalanx. Also some dry gangrene appearance to the 4th toe. Good capillary refill but nonpalpable pulse. Intact sensation through the whole foot. Left foot erythematous and swollen from the mid metatarsal region distally on the lateral aspect. Some erythema even to the great toe. Wet gangrene in the 4th and 5th toes with purulent material draining in the webspace between. The webspace is full of small maggots crawling everywhere. Intact sensation to the foot. Poor capillary refill in the toes. Objective Labs Result Diagrams: 10/04/19 11:32 10/04/19 11:32 Labs: Laboratory Results - last 24 hr 10/04/19 10/04/19 10/04/19 11:32 11:32 11:32 WBC 14.0 H RBC 4.71 Hgb 15.4 Hct 45.1 MCV 95.8 MCH 32.6 MCHC 34.0 RDW 13.8 Plt Count 349 Neut % (Auto) 79.0 H Lymph % (Auto) 13.3 L [place] % (Auto) 6.2 Eos % (Auto) 0.8 L Baso % (Auto) 0.7 Neut # (Auto) 91252 H Lymph # (Auto) 1900 [place] # (Auto) 900 Eos # (Auto) 100 Baso # (Auto) 100 ESR Sodium 132 L Potassium 3.9 Chloride 99 Carbon Dioxide 24 BUN 16 Creatinine 0.66 Estimated GFR > 60.0 BUN/Creatinine Ratio 24.2 H Glucose 129 H Hemoglobin A1c Lactate Calcium 9.1 Total Bilirubin 1.1 AST 25 ALT 11 Alkaline Phosphatase 75 C-Reactive Protein Total Protein 7.5 Albumin 4.3 Globulin 3.2 Albumin/Globulin Ratio 1.3 Triglycerides Cholesterol LDL Cholesterol, Calc HDL Cholesterol Procalcitonin < 0.05 COVID-19 PCR 10/04/19 10/04/19 10/04/19 11:32 11:32 11:32 WBC RBC Hgb Hct MCV MCH MCHC RDW Plt Count Neut % (Auto) Lymph % (Auto) [place] % (Auto) Eos % (Auto) Baso % (Auto) Neut # (Auto) Lymph # (Auto) [place] # (Auto) Eos # (Auto) Baso # (Auto) ESR 19 H Sodium Potassium Chloride Carbon Dioxide BUN Creatinine Estimated GFR BUN/Creatinine Ratio Glucose Hemoglobin A1c Lactate 1.5 Calcium Total Bilirubin AST ALT Alkaline Phosphatase C-Reactive Protein 1.3 H Total Protein Albumin Globulin Albumin/Globulin Ratio Triglycerides Cholesterol LDL Cholesterol, Calc HDL Cholesterol Procalcitonin COVID-19 PCR 10/04/19 10/04/19 10/04/19 11:32 11:32 11:51 WBC RBC Hgb Hct MCV MCH MCHC RDW Plt Count Neut % (Auto) Lymph % (Auto) [place] % (Auto) Eos % (Auto) Baso % (Auto) Neut # (Auto) Lymph # (Auto) [place] # (Auto) Eos # (Auto) Baso # (Auto) ESR Sodium Potassium Chloride Carbon Dioxide BUN Creatinine Estimated GFR BUN/Creatinine Ratio Glucose Hemoglobin A1c 5.6 Lactate Calcium Total Bilirubin AST ALT Alkaline Phosphatase C-Reactive Protein Total Protein Albumin Globulin Albumin/Globulin Ratio Triglycerides 168 H Cholesterol 207 H LDL Cholesterol, Calc 132 H HDL Cholesterol 41 Procalcitonin COVID-19 PCR Negative Assessment & Plan Assessment & Plan narrative: Ongoing Vascular claudication Wet gangrene of the left foot and dry gangrene in the right foot. I had discussed his situation with Dr. Chen earlier and she had ordered a CT angiogram. He just had this done. I have explained to the patient that he definitely is going to need to have some of his toes amputated. However, if he has poor vascular flow to the legs, these areas will not heal and he may need a midfoot amputation, or a below-knee or even above the knee amputation. The only way to give him a chance to preserve as much length on his amputation would be a vascular bypass if this is still possible. If there is something they can be revascularized, plan is to transfer down to vascular surgery at [facility] for definitive treatment for his claudication as well as give him a chance for the toe amputations to heal. He understands this. For now, continue on IV antibiotics. Transfer decision making tomorrow after we have the results of his CT angiogram and can discuss with vascular surgery. COVID-19 COVID-19 status: Negative Result date/Date tested (Pos, Neg/Pending): 10/04/19
[2019-10-04] MEDS: ATORVASTATIN 20 MG TABLET 40 MG PO (20:20)
[2019-10-04] MEDS: DOCUSATE 100 MG CAPSULE PO (20:20)
[2019-10-04] MEDS: MORPHINE 2 MG/ML INJ IV (20:20)
[2019-10-04] MEDS: MORPHINE 2 MG/ML INJ 3 MG IV (22:50)
--- NOTE | 2019-10-04 23:36 | PC.NURSE ---
Admit/Evening Shift Note- Patient arrived to room via stretcher from ER. Patient able to walk from stretcher to bed on his own. Admission questions done, medications reviewed, physical assessment done, and skin check completed. Elevated feet up on pillows with chux pad for drainage from bilateral foot wounds. Photos taken of foot wounds. Patient oriented to bed and bed controls, room, lights, phone, menu, and call cruz/tv remote. safety measures in place. patient agrees to call for assistance. bed alarm activated. call cruz and phone within reach. will continue to monito.
[2019-10-05] VITALS: BP 174/77; PULSE 91; RESP 16; TEMP 36.4; O2SAT 91; O2SAT 98
[2019-10-05] MEDS: MORPHINE 2 MG/ML INJ 3 MG IV ×3 (01:25→05:33)
[2019-10-05] MEDS: VANCOMYCIN 1,000 MG/200 ML PIGGYBACK 200 MG IV (01:28)
[2019-10-05] MEDS: SODIUM CHLORIDE 0.9% 1,000 ML 100 ML IV (03:25)
[2019-10-05 04:00] VITALS: O2SAT 97
[2019-10-05 05:17] LABS: Add Manual Diff / Slide Review NO; BUN Creatinine Ratio 18.3 (6-22); Basophils Absolute Auto 100 /uL (0-100); Basophils Percent Auto 0.6 % (0-2); Blood Urea Nitrogen 11 mg/dL (9-20); Calcium 8.4 mg/dL (8.4-10.2); Carbon Dioxide 24 mmol/L (22-32); Chloride 105 mmol/L (98-107); Eosinophils Absolute Auto 200 /uL (0-450); Eosinophils Percent Auto 1.8 % (2-4); Estimated Glomerular Filt Rate > 60.0 mL/min (>60); Glucose 90 mg/dL (80-110); HEMOLYSIS < 15 (0-50); Hematocrit 40.2 % (41-53); Hemoglobin 13.5 g/dL (13.5-17.5); Lymphocytes Absolute Auto 1800 /uL (1100-4500); Mean Corpuscular HGB Conc 33.6 % (30-36); Mean Corpuscular Hemoglobin 32.2 PG (26-34); Monocytes Absolute Auto 1000 /uL (0-900); Monocytes Percent Auto 8.8 % (3-14); Neutrophils Absolute Auto 8600 /uL (1500-7000); Neutrophils Percent Auto 73.8 % (50-75); Platelet Count 253 X10^3/uL (150-400); Potassium 3.9 mmol/L (3.4-5.1); Red Blood Cell Count 4.19 X10^6/uL (4.5-5.9); Sodium 135 mmol/L (137-145); White Blood Cell Count 11.7 X10^3/uL (4.5-11.0)
[2019-10-05 05:23] LABS: Magnesium 1.9 mg/dL (1.6-2.3)
[2019-10-05 05:44] LABS: Procalcitonin < 0.05 ng/mL (<0.5)
[2019-10-05 05:46] VITALS: BP 153/94; PULSE 80; RESP 16; TEMP 36.1; O2SAT 97
--- NOTE | 2019-10-05 07:41 | PM.PN.1 ---
Subjective Subjective Date Patient Seen: 10/05/19 Time Patient Seen: 07:41 Interval history: No change. Still pain in the feet but he feels like the swelling is greatly gone down. Exam Vital Signs (past 8 hours): - 10/05/19 00:00 10/05/19 04:00 10/05/19 05:46 Temperature 97.6 F 96.9 F L Pulse Rate 91 H 80 Respiratory Rate 16 16 Blood Pressure 174/77 H 153/94 H Pulse Oximetry 91 97 97 Oxygen Delivery Method Room Air Oxygen Flow Rate 0 Const Orientation: alert and oriented x3 Extrem Other: Right 4th and 5th toes dry gangrene no erythema Left foot greatly decreased erythema and swelling from yesterday. Fourth 5th and part of the 3rd toe still soupy drainage with maggots crawling on them but improved appearance compared to last night. Objective Labs Result Diagrams: 10/05/19 04:55 10/05/19 04:55 Labs: Laboratory Results - last 24 hr 10/04/19 10/04/19 10/04/19 11:32 11:32 11:32 WBC 14.0 H RBC 4.71 Hgb 15.4 Hct 45.1 MCV 95.8 MCH 32.6 MCHC 34.0 RDW 13.8 Plt Count 349 Neut % (Auto) 79.0 H Lymph % (Auto) 13.3 L [place] % (Auto) 6.2 Eos % (Auto) 0.8 L Baso % (Auto) 0.7 Neut # (Auto) 18291 H Lymph # (Auto) 1900 [place] # (Auto) 900 Eos # (Auto) 100 Baso # (Auto) 100 ESR Sodium 132 L Potassium 3.9 Chloride 99 Carbon Dioxide 24 BUN 16 Creatinine 0.66 Estimated GFR > 60.0 BUN/Creatinine Ratio 24.2 H Glucose 129 H Hemoglobin A1c Lactate Calcium 9.1 Magnesium Total Bilirubin 1.1 AST 25 ALT 11 Alkaline Phosphatase 75 C-Reactive Protein Total Protein 7.5 Albumin 4.3 Globulin 3.2 Albumin/Globulin Ratio 1.3 Triglycerides Cholesterol LDL Cholesterol, Calc HDL Cholesterol Procalcitonin < 0.05 COVID-19 PCR 10/04/19 10/04/19 10/04/19 11:32 11:32 11:32 WBC RBC Hgb Hct MCV MCH MCHC RDW Plt Count Neut % (Auto) Lymph % (Auto) [place] % (Auto) Eos % (Auto) Baso % (Auto) Neut # (Auto) Lymph # (Auto) [place] # (Auto) Eos # (Auto) Baso # (Auto) ESR 19 H Sodium Potassium Chloride Carbon Dioxide BUN Creatinine Estimated GFR BUN/Creatinine Ratio Glucose Hemoglobin A1c Lactate 1.5 Calcium Magnesium Total Bilirubin AST ALT Alkaline Phosphatase C-Reactive Protein 1.3 H Total Protein Albumin Globulin Albumin/Globulin Ratio Triglycerides Cholesterol LDL Cholesterol, Calc HDL Cholesterol Procalcitonin COVID-19 PCR 10/04/19 10/04/19 10/04/19 11:32 11:32 11:51 WBC RBC Hgb Hct MCV MCH MCHC RDW Plt Count Neut % (Auto) Lymph % (Auto) [place] % (Auto) Eos % (Auto) Baso % (Auto) Neut # (Auto) Lymph # (Auto) [place] # (Auto) Eos # (Auto) Baso # (Auto) ESR Sodium Potassium Chloride Carbon Dioxide BUN Creatinine Estimated GFR BUN/Creatinine Ratio Glucose Hemoglobin A1c 5.6 Lactate Calcium Magnesium Total Bilirubin AST ALT Alkaline Phosphatase C-Reactive Protein Total Protein Albumin Globulin Albumin/Globulin Ratio Triglycerides 168 H Cholesterol 207 H LDL Cholesterol, Calc 132 H HDL Cholesterol 41 Procalcitonin COVID-19 PCR Negative 10/05/19 10/05/19 10/05/19 04:55 04:55 04:55 WBC 11.7 H RBC 4.19 L Hgb 13.5 Hct 40.2 L MCV 96.0 MCH 32.2 MCHC 33.6 RDW 14.0 Plt Count 253 Neut % (Auto) 73.8 Lymph % (Auto) 15.0 L [place] % (Auto) 8.8 Eos % (Auto) 1.8 L Baso % (Auto) 0.6 Neut # (Auto) 8600 H Lymph # (Auto) 1800 [place] # (Auto) 1000 H Eos # (Auto) 200 Baso # (Auto) 100 ESR Sodium 135 L Potassium 3.9 Chloride 105 Carbon Dioxide 24 BUN 11 Creatinine 0.60 L Estimated GFR > 60.0 BUN/Creatinine Ratio 18.3 Glucose 90 Hemoglobin A1c Lactate Calcium 8.4 Magnesium Total Bilirubin AST ALT Alkaline Phosphatase C-Reactive Protein Total Protein Albumin Globulin Albumin/Globulin Ratio Triglycerides Cholesterol LDL Cholesterol, Calc HDL Cholesterol Procalcitonin < 0.05 COVID-19 PCR 10/05/19 04:55 WBC RBC Hgb Hct MCV MCH MCHC RDW Plt Count Neut % (Auto) Lymph % (Auto) [place] % (Auto) Eos % (Auto) Baso % (Auto) Neut # (Auto) Lymph # (Auto) [place] # (Auto) Eos # (Auto) Baso # (Auto) ESR Sodium Potassium Chloride Carbon Dioxide BUN Creatinine Estimated GFR BUN/Creatinine Ratio Glucose Hemoglobin A1c Lactate Calcium Magnesium 1.9 Total Bilirubin AST ALT Alkaline Phosphatase C-Reactive Protein Total Protein Albumin Globulin Albumin/Globulin Ratio Triglycerides Cholesterol LDL Cholesterol, Calc HDL Cholesterol Procalcitonin COVID-19 PCR Assessment & Plan Assessment & Plan narrative: His CT angiogram showed bilateral SFA occlusion, but possibly amenable to revascularization. I again explained to him that with his extremely poor vascular supply I do not think his foot would heal if we tried to just amputated the toes. It is impaired that he have revascularization to that his leg will have a chance of healing. Recommend transfer out to vascular surgery.
[2019-10-05 08:00] VITALS: BP 148/80; PULSE 90; RESP 16; TEMP 36.6; O2SAT 96; O2SAT 97
[2019-10-05] MEDS: SODIUM CHLORIDE 0.9% FLUSH 10 ML IV (08:37)
[2019-10-05] MEDS: ENOXAPARIN 40 MG/0.4 ML SYRINGE SUBCUT (08:37)
[2019-10-05] MEDS: ASPIRIN EC 81 MG TABLET PO (08:37)
[2019-10-05] MEDS: DOCUSATE 100 MG CAPSULE PO (08:37)
[2019-10-05] MEDS: MORPHINE 2 MG/ML INJ IV ×2 (08:43→11:01)
--- NOTE | 2019-10-05 09:37 | PT-IP ANOTE ---
PT order received. Per EMR, ortho consult was done by Dr. Quinones who stated that pt has poor vascular supply and does not recommend him to have amputation. Instead, recommend transfer out to vascular surgery at [facility]. Consult with Dr. Beard and he stated that d/c PT order d/t upcoming transfer.
--- NOTE | 2019-10-05 10:01 | OT.IPNOTE ---
Pt looking to transfer to higher level and therefore discharge OT eval orders.
--- NOTE | 2019-10-05 10:07 | DIET.PN ---
Dietary Progress Note Assessment: 59y M admitted c suspected bilateral foot osteomyelitis, wet/dry gangrene c maggots referred to nutrition for poor appetite. Pt reports being food insecure, on SSI but making too much (1,100/mo) to qualify for EBT benefits. Pt lives in trailer and eats 1-2 meals per day, does not have capacity in trailer to cook food so relies on take-out. Pt is unable to shop for self r/t mobility issues because of current PVD and condition of feet, his son helps out. Usual Day: L: fast food burger D: take out chicken and rice Pt does not have DM2, A1c 5.6, HT: 172.7cm WT: 68kg BMI: 22.8 Labs: CRP 1.3 H, BG WNL, TG 168 H, LDL 132 H Nutrition Diagnosis: unhealing wounds r/t PVD complicated by food insecurity aeb pt admitted c bilateral foot wet/dry gangrene, pt not qualify for EBT, consumes one meal/d r/t income restrictions, pt reports he would eat more if he had food available. Interventions: 1. Discussed ONS protein supplement drinks costing ~$2 each and could be used for low-cost breakfast meal to increase nutrients of concern (vit A, C, zinc, PRO) while on tight budget. 2. Recc ONS Ensure Enlive tid once diet advanced. Diet Order: NPO EER: 102g PRO (1.5g/kg per wounds) Monitoring/Evaluations: diet advancement, ons tolerance
--- NOTE | 2019-10-05 10:29 | PM.DS.1 ---
History of Present Illness History of Present Illness Date Patient Seen: 10/05/19 Time Patient Seen: 10:31 Chief complaint: 'bad problems with my feet' Narrative: As per Dr. Chen, [place] is a 59-year-old male with a past medical history significant for peripheral vascular disease, current smoker with nicotine dependence, and hyperlipidemia who presented to the ED with increasingly painful and gangrenous feet. The patient reports progressive bilateral foot pain for 10 days. He has a history of peripheral vascular disease and was previously seen by a vascular surgeon at [facility] about 5 years ago and was told that he needed a bypass graft at that point but he never had the surgery as he is alone and reports he cant go without walking. He has been having progressive lower extremity claudication and is now only able to stay on his feet for a few minutes at a time. He denies homelessness and states he lives in a trailer in [place]. His claudication has become so severe he is unable to take his trash out at home and believes this is why he has maggots in his wounds due to flies from the trash. He is rubbing his legs during the interview and reports this is the only thing that gives him relief. He reports pain is legs when he stands, walks or elevates legs which starts in the feet and works its way up his legs and when he sits down it gradually gets better. He has been having increasing and severe pain into both feet much worse on the left side and the toes on both feet have been looking very bad, turning black on the right and draining pus and red hot on the left for 10 days. He has had some nausea lately but no vomiting. He has no other complaints and denies headache, shortness of breath, chest pain, abdominal pain, fever, chills, dysuria, diarrhea or constipation. Discharge Providers Provider Date of admission: 10/04/19 14:11 Discharge Date: 10/05/19 Consults: 10/04/19 16:20 Consult to Discharge Planning Routine Comment: Consult to Occupational Therapy Evaluate & Treat Comment: Physician Instructions: Evaluate and treat Consult to Physical Therapy Evaluate & Treat Comment: Physician Instructions: Evaluate and Treat 10/04/19 16:31 Consult to Dietitian, Adult Routine Comment: Reason For Exam: poor appetite 10/04/19 17:30 Consult to Orthopedic Surgery Routine Comment: Consulting Provider: Nomi Quinones Reason for consultation: Osteomyelitis of bilateral feet Has provider been notified: Yes Discharge provider: Jarad Beard DO Summary Hospital Course Discharge Diagnosis: Please see hospital course by problem list noted below. Hospital Course: Topher Bethea is a 59-year-old male with a past medical history significant for peripheral vascular disease, current smoker with nicotine dependence, hyperlipidemia who presented to the ED with increasingly painful and gangrenous feet. He was admitted for further evaluation and treatment. In consultation with orthopedic surgery, CTA performed which showed bilateral SFA occlusion. Recommended transfer for possible revascularization prior to possible amputation. 1. Acute osteomyelitis of bilateral feet with both dry and wet gangrene, secondary to peripheral vascular disease, present on admission. Active. -Patient presented with progressive worsening bilateral foot pain L>R with claudication and dry gangrene of right 5th toe and wet gangrene of 3rd-5th toes of left foot with maggots in wounds and foul smell and drainage. Patient with history of PVD with recommended fem-pop bypass 5 years ago at [facility] vascular surgery. -Right toe x-ray demonstrated ulceration involving tip of 5th toe with underlying osteomyelitis involving 5th distal phalangeal tuft and mid to distal shaft. -Left foot x-ray demonstrated possible ulceration involving 4th interspace of forefoot with subtle erosive changes in 4th and 5th toes as described above concerning for osteomyelitis. No fracture or dislocation. Initial WBC 14.0 and procalcitonin negative <0.05. Improved to 11.7 the following day. ESR and CRP only mildly elevated at 19 and 1.3 respectively on admission. -Blood cultures without growth, wound cultures from bilateral wounds currently with proteus, sensitivities pending. -hemoglobin A1C was 5.6%. -Continue oxycodone 5-10 mg every 4 hours for pain. -Started atorvastatin 40 mg daily at bedtime and continue home aspirin 81 mg daily. -Received vancomycin in ED. Continue vancomycin with dosing per pharmacist and ceftriaxone 2 g IV daily. -Ordered CT abdominal aortic run off to assess severity of peripheral vascular disease which showed bilateral stenosis of SFA as noted above. -Consulted orthopedic surgery, Dr. Quinones, to evaluate osteomyelitis and probable amputation of right 4th toe and possibly left toes versus foot or higher. Patient has limited vascular supply and would not heal and may require extensive amputation, transferred to [facility] for further vascular surgery consultation and possible revascularlzation. Accepting physician Dr. Acuna. 2. Hyperlipidemia, chronic, present on admission. Stable. -Lipid panel with TG 168, TC 207, LDL 132. -Started atorvastatin 40 mg daily at bedtime and continue home aspirin 81 mg daily. 3. Nicotine dependence, chronic, present on admission. Stable. -Patient smokes 1.5 ppd x 40 years making a 60 pack year history. -encouraged smoking cessation. 4. Elevated blood pressures without a diagnosis of hypertension - patient with blood pressures as high as 189/92 in the ER, likely worsened in the setting of significant pain. Improved to 148/80 this AM with improved pain. No therapy initiated but if continues to remain high would initiate an antihypertensive. Code Status: DNR/DNI VTE prophylaxis: Enoxaparin Patient was admitted under inpatient status with expected length of stay greater than 2 midnights due to severity of presenting symptoms, risk of adverse event, and complexity of treatment plan. He will be transferred to [facility] for vascular surgery evaluation and further management. Accepting physician Dr. Acuna. Time Spent with Patient Time spent: Greater than 30 minutes Exam Vital Signs (past 8 hours): - 10/05/19 04:00 10/05/19 05:46 10/05/19 08:00 Temperature 96.9 F L 97.8 F Pulse Rate 80 90 Respiratory Rate 16 16 Blood Pressure 153/94 H 148/80 H Pulse Oximetry 97 97 96 Oxygen Delivery Method Room Air Oxygen Flow Rate 0 Narrative Exam Narrative: General: Older disheveled appearing male appears mildly uncomfortbale but in no acute distress, appears older than stated age, poor hygeine, mild anxiety but appropriately interactive. HEENT: Normocephalic, atraumatic. External ears without defect. Pupils equal, round, and reactive to light. Anicteric sclerae, moist conjunctivae, and no lid lag. Oropharynx free of erythema and cobble stoning with moist mucosa. Neck: Supple with full range of motion. No lymphadenopathy or thyromegaly. Cardiovascular: Regular rate and rhythm without murmurs, rubs, or gallops appreciated. Pulmonary: Clear to auscultation bilaterally without crackles, wheezes, or rhonchi. Normal respiratory effort with no use of accessory muscles. Abdomen:Soft, bowel sounds present, nontender, nondistended. No hepatosplenomegaly or masses appreciated. Extremities: No clubbing or cyanosis. Dry gangrene of right 5th toe and wet gangrene of 3rd-5th toes of left foot with maggots in wounds and foul smell and drainage with surrounding foot erythematous and edematous to ankle and small flutuance on lateral mid aspect of left foot. Pulses weak bilaterally at popliteal and dorsalis pedis. Neurological: Cranial nerves grossly intact. Psychiatric: Normal mood and affect. Alert and oriented to person, place, and time. Objective Labs Result Diagrams: 10/05/19 04:55 10/05/19 04:55 Labs: Laboratory Results - last 24 hr 10/04/19 10/04/19 10/04/19 11:32 11:32 11:32 WBC 14.0 H RBC 4.71 Hgb 15.4 Hct 45.1 MCV 95.8 MCH 32.6 MCHC 34.0 RDW 13.8 Plt Count 349 Neut % (Auto) 79.0 H Lymph % (Auto) 13.3 L [place] % (Auto) 6.2 Eos % (Auto) 0.8 L Baso % (Auto) 0.7 Neut # (Auto) 13162 H Lymph # (Auto) 1900 [place] # (Auto) 900 Eos # (Auto) 100 Baso # (Auto) 100 ESR Sodium 132 L Potassium 3.9 Chloride 99 Carbon Dioxide 24 BUN 16 Creatinine 0.66 Estimated GFR > 60.0 BUN/Creatinine Ratio 24.2 H Glucose 129 H Hemoglobin A1c Lactate Calcium 9.1 Magnesium Total Bilirubin 1.1 AST 25 ALT 11 Alkaline Phosphatase 75 C-Reactive Protein Total Protein 7.5 Albumin 4.3 Globulin 3.2 Albumin/Globulin Ratio 1.3 Triglycerides Cholesterol LDL Cholesterol, Calc HDL Cholesterol Procalcitonin < 0.05 COVID-19 PCR 10/04/19 10/04/19 10/04/19 11:32 11:32 11:32 WBC RBC Hgb Hct MCV MCH MCHC RDW Plt Count Neut % (Auto) Lymph % (Auto) [place] % (Auto) Eos % (Auto) Baso % (Auto) Neut # (Auto) Lymph # (Auto) [place] # (Auto) Eos # (Auto) Baso # (Auto) ESR 19 H Sodium Potassium Chloride Carbon Dioxide BUN Creatinine Estimated GFR BUN/Creatinine Ratio Glucose Hemoglobin A1c Lactate 1.5 Calcium Magnesium Total Bilirubin AST ALT Alkaline Phosphatase C-Reactive Protein 1.3 H Total Protein Albumin Globulin Albumin/Globulin Ratio Triglycerides Cholesterol LDL Cholesterol, Calc HDL Cholesterol Procalcitonin COVID-19 PCR 10/04/19 10/04/19 10/04/19 11:32 11:32 11:51 WBC RBC Hgb Hct MCV MCH MCHC RDW Plt Count Neut % (Auto) Lymph % (Auto) [place] % (Auto) Eos % (Auto) Baso % (Auto) Neut # (Auto) Lymph # (Auto) [place] # (Auto) Eos # (Auto) Baso # (Auto) ESR Sodium Potassium Chloride Carbon Dioxide BUN Creatinine Estimated GFR BUN/Creatinine Ratio Glucose Hemoglobin A1c 5.6 Lactate Calcium Magnesium Total Bilirubin AST ALT Alkaline Phosphatase C-Reactive Protein Total Protein Albumin Globulin Albumin/Globulin Ratio Triglycerides 168 H Cholesterol 207 H LDL Cholesterol, Calc 132 H HDL Cholesterol 41 Procalcitonin COVID-19 PCR Negative 10/05/19 10/05/19 10/05/19 04:55 04:55 04:55 WBC 11.7 H RBC 4.19 L Hgb 13.5 Hct 40.2 L MCV 96.0 MCH 32.2 MCHC 33.6 RDW 14.0 Plt Count 253 Neut % (Auto) 73.8 Lymph % (Auto) 15.0 L [place] % (Auto) 8.8 Eos % (Auto) 1.8 L Baso % (Auto) 0.6 Neut # (Auto) 8600 H Lymph # (Auto) 1800 [place] # (Auto) 1000 H Eos # (Auto) 200 Baso # (Auto) 100 ESR Sodium 135 L Potassium 3.9 Chloride 105 Carbon Dioxide 24 BUN 11 Creatinine 0.60 L Estimated GFR > 60.0 BUN/Creatinine Ratio 18.3 Glucose 90 Hemoglobin A1c Lactate Calcium 8.4 Magnesium Total Bilirubin AST ALT Alkaline Phosphatase C-Reactive Protein Total Protein Albumin Globulin Albumin/Globulin Ratio Triglycerides Cholesterol LDL Cholesterol, Calc HDL Cholesterol Procalcitonin < 0.05 COVID-19 PCR 10/05/19 04:55 WBC RBC Hgb Hct MCV MCH MCHC RDW Plt Count Neut % (Auto) Lymph % (Auto) [place] % (Auto) Eos % (Auto) Baso % (Auto) Neut # (Auto) Lymph # (Auto) [place] # (Auto) Eos # (Auto) Baso # (Auto) ESR Sodium Potassium Chloride Carbon Dioxide BUN Creatinine Estimated GFR BUN/Creatinine Ratio Glucose Hemoglobin A1c Lactate Calcium Magnesium 1.9 Total Bilirubin AST ALT Alkaline Phosphatase C-Reactive Protein Total Protein Albumin Globulin Albumin/Globulin Ratio Triglycerides Cholesterol LDL Cholesterol, Calc HDL Cholesterol Procalcitonin COVID-19 PCR Discharge Plan Discharge Plan Disposition: Xfer Acute Care Hospital Discharge Health Status Health Concerns: bilateral toe osteomyelitis peripheral vascular disease
--- NOTE | 2019-10-05 11:02 | CM.DANOTE ---
DCP: Note: Transfer to [facility] for higher level of vascular care. Case received, EMR reviewed and spoke with Dr. Beard during Team Rounds. He reported that he was in process of transferring pt to higher level of care. Pt admitted yesterday afternoon to care of Hospitalist team. Dr. Quinones: consulted. Payer: [facility] [facility] will be here to pick pt up in 15 minutes.
--- NOTE | 2019-10-05 11:56 | PC.NURSE ---
1145: Patient transferred to [facility], report given to receiving RN Simba and transport team on arrival. Patient awake, alert, and cooperative. VSS and afebrile. Understands importance of transferring to [place]. All belongings with patient, including dentures, wallet, cell phone and clothing. DNR POLST by Dr. Beard.
== END 2019-10-05 12:01 | disposition short-term general hospital (02) | DRG 300 ==
LOC: ED 13:58 → AC 14:11
PROVIDERS: Admitting Provider Internal Medicine; Emergency Provider Nurse Practitioner; Referring Provider Nurse Practitioner; Visit Provider Internal Medicine
DX: I70.268 Atherosclerosis of native arteries of extremities with gangrene, other extremity (principal); M86.172 Other acute osteomyelitis, left ankle and foot; M86.171 Other acute osteomyelitis, right ankle and foot; L97.529 Non-pressure chronic ulcer of other part of left foot with unspecified severity; L97.519 Non-pressure chronic ulcer of other part of right foot with unspecified severity; F17.210 Nicotine dependence, cigarettes, uncomplicated; E78.5 Hyperlipidemia, unspecified; R03.0 Elevated blood-pressure reading, without diagnosis of hypertension; Z66 Do not resuscitate; Z11.59 Encounter for screening for other viral diseases
CPT/HCPCS: 36415; 71045; 73630; 73660; 75635; 80048; 80053; 80061; 81003; 83036; 83605; 83735; 84145; 85025; 85651; 86140; 87040; 87070; 87077; 87186; 87205; 87635; 93005; 93010; 96361; 96365; 96366; 96375; 99284; J0696; J1650; J1885; J2270; Q9967

== ENCOUNTER → 2022-10-28 08:26 | Outpatient (CLI) | payer OTHER, SELFPAY ==
[2019-10-04 16:22] VITALS: BMI 22.8
--- NOTE | 2022-10-28 08:29 | DI.CT.S_ITS ---
PROCEDURE: CT ANGIO ABD AORTA RUNOFF INDICATIONS: Peripheral vascular disease, unspecified TECHNIQUE: After the administration of intravenous contrast, 2.5 mm sections acquired from T12 to the feet, with optional delayed image acquisition from the knees to the feet. 3-dimensional maximum intensity projection (MIP) coronal and sagittal reformats, and/or 3-dimensional volume rendering reformatting was then performed. For radiation dose reduction, the following was used: automated exposure control. COMPARISON: [facility], CT, CT ANGIO ABD AORTA RUNOFF, 10/04/2019, 19:12. FINDINGS: Image quality: Mildly suboptimal due to motion artifact. Extravascular tissues: Lung bases are clear. Small hiatal hernia. Heart size is normal. Liver is normal in size and enhancement. Gallbladder is unremarkable . Biliary system is non dilated. Pancreas enhances normally. Spleen is normal in size and enhancement. No adrenal nodules. Kidneys are normal in size and enhancement, without hydronephrosis. Non opacified bowel loops demonstrate normal wall thickness and enhancement. Colonic diverticulosis without evidence of diverticulitis. No free fluid or air. No retroperitoneal or mesenteric adenopathy. No ventral hernias. Bladder wall thickness is moderately thickened. Mildly enlarged bilateral external iliac chain lymph nodes. For instance, the 11 mm short axis right external iliac chain node previously measured 0.7 cm (series 6, image 170).. No suspicious bony lesions. No vertebral body compression fractures. Abdominal aorta: Diffuse atherosclerotic disease, without hemodynamically significant stenosis. Patent splanchnic vasculature. Right lower extremity: Right common iliac stent is occluded. Reconstitution of the distal common iliac artery. Patent right internal iliac stent. Near complete stenosis of the entire common femoral artery. The common femoral artery is diminutive in the proximal to mid segment, but remains widely patent. Three-vessel runoff. Left lower extremity: Occluded left common iliac stent and external iliac stent. Reconstitution at the proximal common femoral artery, which is diminutive throughout its course. Superficial femoral artery is widely patent and there is three-vessel runoff. IMPRESSION: Occluded right common iliac artery stent, with reconstitution of the distal common iliac artery. The right external iliac artery stent is widely patent, but the common femoral artery and proximal to mid superficial femoral artery are diminutive throughout their course. Three-vessel runoff. Occluded left common and external iliac stents, with reconstitution of the proximal common femoral artery, which is diminutive. Three-vessel runoff. Diffuse thickening of the urinary bladder, which may indicate chronic outlet obstruction or infection. Dictated by: Meliton Thomason M.D. on 10/28/2022 at 13:22 Approved by: Meliton Thomason M.D. on 10/28/2022 at 13:28
[2022-10-28 09:01] LABS: Estimated Glomerular Filt Rate > 60 mL/min (>60)
== END ==
PROVIDERS: Radiology Diagnostic Radiology; Referring Provider Surgery; Visit Provider Surgery
DX: I73.9 Peripheral vascular disease, unspecified (principal); T82.856A Stenosis of peripheral vascular stent, initial encounter
CPT/HCPCS: 36415; 75635; 82565; Q9967